=== PATIENT | female | born 1955 | race Caucasian/White ===

== ENCOUNTER → 2016-10-04 | Outpatient (CLI) | payer OTHER | LOC: SPEECH 07:55 | DX: R13.12 Dysphagia, oropharyngeal phase (principal) ==

== ENCOUNTER → 2016-11-17 | Outpatient (CLI) | payer OTHER ==
[~2016-11-17] VITALS: Ht 177.8 cm; Wt 90.7 kg
[~2016-11-17] MED LIST: ALLER-TEC D 5-1 EACH PO; ASPIR 8181 MG PO; COLACE100 MG PO; FLONASE 0.05%50 MCG NASAL; FOLIC ACID1 MG PO; GAS-X180 MG PO; LISINOPRIL10 MG PO; MAGNESIUM CITR296 ML PO; MUCINEX600 MG PO; NEURONTIN 300300 M1 PO; PROAIR HFA8.5 GM INH; SYNTHROID50 MCG PO; VITAMIN B-12500 MCG PO; VITAMIN D2000 UNI1 PO; ZANTAC 150MG T150 MG PO
--- NOTE | ~2016-11-17 | S ---
[facility] [address] [place] [address] SURGICAL PATH RPT PROCEDURE Name: PRASAD MCGINNIS Room #: REG KIRA Pal#: [id number] Admission: 11/17/16 Date of : 59 Discharge: Report #: [id number] Path Case #: [id number] PATHOLOGY REPORT DRAFT COLLECTION DATE: 11/17/2016 RECEIVED DATE: 11/17/2016 SPECIMEN(S) RECEIVED: A.Polyp at cecum B.Polyp at rectum
--- NOTE | ~2016-11-17 | P ---
[facility] [place] [address] PROCEDURE REPORT Name: PRASAD MCGINNIS Room #: REG [facility]#: [id number] Admission: 11/17/16 Attend Phys: Shalom Spicer Discharge: Date of : 59 Report #: [id number] THIS REPORT FOR: //name// CC: Shalom Abel MD DATE OF SERVICE: 11/17/2016 PROCEDURE PERFORMED: Colonoscopy with biopsies. HISTORY OF PRESENT ILLNESS: The patient is a 61-year-old female with a history of colon polyps, last colonoscopy was 5 years ago. She denies any symptoms at this time. No family history of colon cancer. PROCEDURE: The risks and benefits of the procedure were explained to the patient, those risks including, but not limited to bleeding, perforation, the risk of sedation. She understood these risks and gave informed consent. Sedation was given using propofol per anesthesia. Next, a digital rectal exam was initially performed, which was normal. Next, using a standard Fujinon colonoscope, the scope was placed in the patient's anus and advanced under direct vision to the cecum. The overall prep was good. In the cecum, there was a 3-mm sessile polyp, this was removed with cold forceps, otherwise normal. Ileocecal valve was normal. The ascending, transverse, descending, and sigmoid colon were normal. In the rectum, a 5-mm sessile polyp was noted, this was also removed with cold forceps. On retroflexion, small nonbleeding internal hemorrhoids were noted, otherwise normal colonoscopy. The scope was then withdrawn and the procedure terminated. The patient tolerated the procedure well. IMPRESSION: 1. Two small colonic polyps. 2. Small internal hemorrhoids. 3. Otherwise, normal colonoscopy. RECOMMENDATIONS: Await biopsy results. If polyps are hyperplastic, repeat in 10 years; if adenomatous polyp, repeat in 5 years. Thank you for allowing me to participate in her care. <ELECTRONICALLY SIGNED> By: Shalom Landrum MD 11/17/16 1151 [id number] Shalom Landrum MD /nt
== END | disposition home or self-care (01) ==
LOC: GI 08:07
DX: Z09 Encounter for follow-up examination after completed treatment for conditions other than malignant neoplasm (principal); Z87.19 Personal history of other diseases of the digestive system; D12.0 Benign neoplasm of cecum; D12.8 Benign neoplasm of rectum; K64.8 Other hemorrhoids

== ENCOUNTER → 2017-12-21 | Outpatient (CLI) | payer OTHER | LOC: RAD 09:47 | DX: M51.36 Other intervertebral disc degeneration, lumbar region (principal); M51.34 Other intervertebral disc degeneration, thoracic region ==

== ENCOUNTER → 2018-04-09 | Outpatient (CLI) | payer OTHER | LOC: RAD 11:04 | DX: Z12.31 Encounter for screening mammogram for malignant neoplasm of breast (principal) ==

== ENCOUNTER → 2018-09-24 | Outpatient (CLI) | payer OTHER | LOC: CAT 07:57 | DX: Z13.6 Encounter for screening for cardiovascular disorders (principal); I25.10 Atherosclerotic heart disease of native coronary artery without angina pectoris; E78.00 Pure hypercholesterolemia, unspecified ==

== ENCOUNTER → 2019-04-10 | Outpatient (CLI) | payer OTHER | LOC: RAD 08:29 | DX: Z12.31 Encounter for screening mammogram for malignant neoplasm of breast (principal) ==

== ENCOUNTER 2019-08-25 08:41 | Emergency (ER) | payer OTHER ==
[~2019-08-25] VITALS: Ht 177.8 cm; Wt 92.1 kg
[2019-08-25] MEDS ORDERED: PEPCID20 MG PO (08:56)
[2019-08-25 10:45] VITALS: BP 118/63
== END 2019-08-25 10:45 | disposition home or self-care (01) ==
LOC: ER 08:41
DX: J02.9 Acute pharyngitis, unspecified (principal); Z20.828 Contact with and (suspected) exposure to other viral communicable diseases; R09.81 Nasal congestion; R05 Cough; R06.02 Shortness of breath; I10 Essential (primary) hypertension; K21.9 Gastro-esophageal reflux disease without esophagitis; J45.909 Unspecified asthma, uncomplicated; E03.9 Hypothyroidism, unspecified; Z98.890 Other specified postprocedural states; Z79.899 Other long term (current) drug therapy; Z79.82 Long term (current) use of aspirin; Z91.041 Radiographic dye allergy status; Z88.1 Allergy status to other antibiotic agents

== ENCOUNTER → 2020-02-16 | Outpatient (CLI) | payer OTHER ==
[~2020-02-16] MED LIST changes: +PEPCID20 MG PO
== END ==
LOC: LAB 12:09
PROVIDERS: ATTEND Nurse Practitioner
DX: Z20.828 Contact with and (suspected) exposure to other viral communicable diseases (principal)

== ENCOUNTER → 2020-04-22 | Outpatient (CLI) | payer OTHER | LOC: BC 04-19 10:06 | PROVIDERS: ATTEND Obstetrics & Gynecology | DX: Z12.31 Encounter for screening mammogram for malignant neoplasm of breast (principal) ==

== ENCOUNTER → 2020-10-05 | Outpatient (CLI) | payer OTHER ==
[2020-10-05 13:12] LABS: ABSOLUTE NEUTROPHILS 2.3 thou/uL (1.4-8.2); BASOPHILS 0.7 % (0.0-2.0); EOSINOPHILS 2.9 % (0.0-3.0); HEMATOCRIT 36.8 % (37.0-47.0); HEMOGLOBIN 12.2 gm/dL (12.0-15.0); LYMPHOCYTES 31.4 % (24.0-44.0); MCH 29.8 pg (26.0-34.0); MCHC 33.1 g/dL (28.0-37.0); MCV 89.9 fL (80.0-100.0); MONOCYTES 7.1 % (1.0-8.0); PLATELET COUNT 230 thou/uL (150-400); POLYS 57.9 % (36.0-66.0); RDW 13.1 % (10.5-14.5); URINE BILIRUBIN NEGATIVE (Negative); URINE BLOOD NEGATIVE (Negative); URINE CLARITY CLEAR; URINE COLOR YELLOW; URINE GLUCOSE-RANDOM* NEGATIVE (Negative); URINE KETONES NEGATIVE (Negative); URINE LEUKOCYTES-REFLEX NEGATIVE (Negative); URINE NITRITE-REFLEX NEGATIVE (Negative); URINE PROTEIN (DIPSTICK) NEGATIVE (Negative); URINE SPECIFIC GRAVITY 1.015 (1.005-1.035); URINE UROBILINOGEN 0.2 E.U./dl (0.2-1.0)
[2020-10-05 13:32] LABS: ANION GAP 6 mmol/L (7-16); BUN 20 mg/dL (7-18); CHLORIDE 108 mmol/L (98-107); CHOLESTEROL 152 mg/dL (<200); CO2 31 mmol/L (21-32); CREATININE 0.8 mg/dL (0.6-1.0); GLUCOSE 87 mg/dL (74-106); HDL CHOLESTEROL 64 mg/dL (>40); LDL CHOLESTEROL 69 mg/dL (<100); POTASSIUM 4.3 mmol/L (3.5-5.1); SGOT 22 U/L (15-37); SGPT 28 U/L (30-65); SODIUM 145 mmol/L (136-145); TC:HDL 2.4 Ratio (Not establshd); TOTAL BILIRUBIN 0.5 mg/dL (0.2-1.0); TRIGLYCERIDE 97 mg/dL (<150); VLDL 19 mg/dL (<40)
[2020-10-06 01:24] LABS: GLYCOHEMOGLOBIN (HGB A1C) 5.7 % (4.8-5.6)
== END ==
LOC: LAB 11:55
PROVIDERS: ATTEND Family Medicine
DX: Z00.00 Encounter for general adult medical examination without abnormal findings (principal); E78.2 Mixed hyperlipidemia; E03.9 Hypothyroidism, unspecified; I10 Essential (primary) hypertension; E55.9 Vitamin D deficiency, unspecified; E61.2 Magnesium deficiency; G47.33 Obstructive sleep apnea (adult) (pediatric); G70.9 Myoneural disorder, unspecified; G60.0 Hereditary motor and sensory neuropathy; Z99.89 Dependence on other enabling machines and devices

== ENCOUNTER → 2020-12-02 | Outpatient (CLI) | payer OTHER | LOC: SJCVCIMAG 10:40 | PROVIDERS: ATTEND Internal Medicine Cardiovascular Disease | DX: R07.9 Chest pain, unspecified (principal) ==

== ENCOUNTER → 2021-04-26 | Outpatient (CLI) | payer OTHER | LOC: BC 14:23 | PROVIDERS: ATTEND Family Medicine | DX: Z12.31 Encounter for screening mammogram for malignant neoplasm of breast (principal) ==